=== PATIENT | male | born 2000 | race Caucasian/White ===

== ENCOUNTER → 2021-04-25 16:53 | Outpatient (CLI) | payer OTHER, BC, SELFPAY ==
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
== END ==
PROVIDERS: Referring Provider Physician Assistant; Visit Provider Physician Assistant
DX: N50.811 Right testicular pain (principal); S39.94XA Unspecified injury of external genitals, initial encounter; Y99.0 Civilian activity done for income or pay; X58.XXXA Exposure to other specified factors, initial encounter
CPT/HCPCS: 76870

== ENCOUNTER → 2021-05-10 15:14 | Outpatient (CLI) | payer OTHER, SELFPAY ==
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
== END ==
PROVIDERS: Referring Provider Physician Assistant; Visit Provider Physician Assistant
DX: R52 Pain, unspecified (principal); Y99.0 Civilian activity done for income or pay; M25.579 Pain in unspecified ankle and joints of unspecified foot
CPT/HCPCS: 72100; 73562; 73590; 73610